=== PATIENT | female | born 1965 | race Caucasian/White ===

== ENCOUNTER → 2018-05-13 | Outpatient (REF) | payer OTHER ==
[~2018-05-13] MED LIST: FISH OIL1 CAP PO; IBU800 PO; LEVO50TA80 PO; MULT-1335 PO; SIMV-42 PO; TRA50 PO
== END ==
LOC: ZZPBJ 18:42
PROVIDERS: ATTEND Orthopaedic Surgery Hand Surgery
DX: R22.31 Localized swelling, mass and lump, right upper limb (principal)
CPT/HCPCS: 87070; 87205

== ENCOUNTER → 2019-01-14 | Outpatient (CLI) | payer OTHER ==
[~2019-01-14] MED LIST changes: +ATOR20TA22 PO; +FLUC150T40 PO; +LOOVRAL PO; +METH2.5T43 PO; +OMEP-125 PO; +VALA500T63 PO
--- NOTE | 2019-01-14 12:54 | RADIOLOGY IMAGING REPORT ---
FACILITY: [facility] PATIENT NAME: DYLAN HIGGINBOTHAM : [id number] MR: [id number] V: [id number] EXAM DATE: [id number] ORDERING PHYSICIAN: QUIRINO DUQUE TECHNOLOGIST: Eve Webster PROCEDURE:BILATERAL DIGITAL SCREENING MAMMOGRAM WITH CAD ASSISTED INTERPRETATION & 3D TOMOSYNTHESIS COMPARISON:Prior mammograms 09/23/2015 & 10/21/2013. Family History: Maternal Aunt Personal History: None INDICATIONS:SCREENING FINDINGS: Heterogeneously dense glandular tissue which could obscure small masses. There are no mass lesions, architectural distortions, or any clustering of suspicious microcalcifications. No interval change when compared to the previous studies. DIAGNOSTIC CATEGORY 1--NEGATIVE. RECOMMENDATIONS: ROUTINE MAMMOGRAM AND CLINICAL EVALUATION. IMPRESSION: BIRADS 1: Negative. Dictated by: Raimundo Nuñez M.D. on 01/14/2019 at 11:05 Transcribed by: TIANA on 01/14/2019 at 11:22 Approved by: Raimundo Nuñez M.D. on 01/14/2019 at 12:53 [facility]
== END ==
LOC: MAMO 01:19
PROVIDERS: ATTEND Obstetrics & Gynecology
DX: Z12.31 Encounter for screening mammogram for malignant neoplasm of breast (principal)
CPT/HCPCS: 77063; 77067